=== PATIENT | male | born 1995 | race African-American/Black ===

== ENCOUNTER 2016-06-08 20:24 | Emergency (ER) | payer SELFPAY ==
[~2016-06-08] VITALS: Ht 188 cm; Wt 80.0 kg
[2016-06-08 20:26] VITALS: BP 158/106; PULSE 86; RESP 16; TEMP 98.6; O2SAT 98
[2016-06-08] MEDS ORDERED: CLIN150 PO (21:42)
[2016-06-08] MEDS ORDERED: LIDOCAINE 1%/EPINEPHrine 1:100,000 SOLN 20 ML VIAL INFIL ONE (21:45)
[2016-06-08] MEDS ORDERED: CLINDAMYCIN PHOS 600 MG/4 ML VIAL IM ONE (21:45)
[2016-06-08] MEDS ORDERED: BUPIVACAINE HCL PF 0.5% 30 ML VIAL INFIL ONE (21:45)
--- NOTE | 2016-06-08 21:47 | PD ---
HPI Chief Complaint: dental abscess Time Seen by Provider: 21:43 Travel History International Travel<30 days: No Contact w/Intl Traveler<30days: No Traveled to known affect area: No History of Present Illness HPI 21-year-old black male presents to the department with complaints of worsening dental pain and facial swelling. He states that his symptoms have been present now for the past 3 or 4 days. He was seen by his dentist today sometime around 9-10 AM. He has had 2 doses of his amoxicillin. He states that he is concerned that he feels his face is becoming more swollen and he has not responded. He states the pain is moderate to severe. No alleviating factors. He states that he feels subjectively warm. He does complain of pain to his left ear. He denies any nausea vomiting. No abdominal pain or diarrhea. No dysuria or frequency. PFSH Past Medical History Medical History: Denies Significant Hx Tetanus Vaccination: < 5 Years Past Surgical History Surgical History: No Previous Surgery Social History Alcohol Use: No Tobacco Use: No Substance Use: No Allergies-Medications (Allergen,Severity, Reaction): Coded Allergies: No Known Allergies (Unverified , 06/08/16) Reported Meds & Prescriptions Reported Meds & Active Scripts Active Cleocin (Clindamycin HCl) 150 Mg Cap 300 Mg PO Q6H Review of Systems Except as stated in HPI: all other systems reviewed are Neg Physical Exam Narrative GENERAL: Well-developed, well-nourished in no acute distress. Nontoxic appearing. HEAD: Normocephalic, atraumatic. EYES: Pupils equal round and reactive. Extraocular motions intact. No scleral icterus. No injection or drainage. ENT: TMs clear without erythema. The external auditory canals clear. Nose: clear . Posterior pharynx is pink and moist. No tonsillar edema or exudate. Uvula midline. Airway patent. Patient has a dental carry in tooth #19 with gingival erythema and edema. This appears to be a dental abscess. There is some left lower mandibular swelling. No trismus. NECK: Trachea midline.Supple, nontender, moves head freely. No central bony tenderness or spasm. CARDIOVASCULAR: Regular rate and rhythm without murmurs, gallops, or rubs. RESPIRATORY: Clear to auscultation. Breath sounds equal bilaterally. No wheezes , rales, or rhonchi. GASTROINTESTINAL: Abdomen soft, non-tender, nondistended. No hepato-splenomegaly , or palpable masses. No guarding. EXTREMITIES: No clubbing, cyanosis, or edema. No joint tenderness, effusion, or edema noted. BACK: Nontender without deformity or crepitance. No flank tenderness. Data Data Last Documented VS Vital Signs Date Time Temp Pulse Resp B/P Pulse Ox O2 Delivery O2 Flow Rate FiO2 06/08/16 20:26 98.6 86 16 158/106 98 Room Air Orders Lidocai-Epi 1%-1:100,000 Inj (Xylocaine- (06/08/16 21:45) Clindamycin Inj (Cleocin Inj) (06/08/16 21:45) Bupivacaine Pf 0.5% Inj (Marcaine Pf 0.5 (06/08/16 21:45) MDM Medical Decision Making Medical Screen Exam Complete: Yes Emergency Medical Condition: Yes Medical Record Reviewed: Yes Differential Diagnosis MDM: Moderate Differential diagnoses: Dental abscess, dental caries, osteitis, cellulitis Narrative Course This is dental abscess. A incision and drainage has been performed. Patient's given clindamycin 600 mg IM. Procedures Procedure Narrative Incision and drainage dental abscess: 1% lidocaine with epinephrine and 0.5% Marcaine was injected into the gingiva on the vehicle side of around tooth #19 and 20. A stab incision with an 11 blade scalpel was made and pus is expressed. Diagnosis Primary Impression: Dental abscess Departure Forms: Work Release Special Instructions: No work 2 days Additional Instructions: Rest. [place] gargles. [place] oil on cotton balls. Continue your medications. Add in clindamycin. follow-up with a dentist as soon as possible. And return to the ER if any problems. Med/Other Pt SpecificInfo: Prescription(s) given Scripts Clindamycin (Cleocin)150 Mg [id number] Mg PO Q6H #80 CAP Prov:Eduardo Reyna MD 06/08/16 Disposition: 01 DISCHARGE HOME Condition: Stable Holger Guzman Jun 08, 2016 21:47
== END 2016-06-08 22:36 | disposition home or self-care (01) ==
LOC: NEPB 20:24
DX: K04.7 Periapical abscess without sinus (principal); H92.02 Otalgia, left ear
CPT/HCPCS: 10060; 96372

== ENCOUNTER 2016-06-09 03:48 | Emergency (ER) | payer SELFPAY ==
[~2016-06-09] VITALS: Ht 185.4 cm; Wt 75.3 kg
[~2016-06-09 03:48] MED LIST: CLIN150 PO
[2016-06-09 03:50] VITALS: BP 153/100; PULSE 86; RESP 16; TEMP 98.6; O2SAT 97
[2016-06-09] MEDS ORDERED: BUPIVACAINE/EPINEPHRINE 0.25% PF 30 ML VIAL NERV BLOCK ONE (04:15)
[2016-06-09] MEDS ORDERED: LIDOCAINE 1%/EPINEPHrine 1:100,000 SOLN 20 ML VIAL INFIL ONE (04:15)
--- NOTE | 2016-06-09 05:15 | PD ---
HPI Chief Complaint: Oral / Dental Pain or Problem Time Seen by Provider: 05:11 Travel History International Travel<30 days: No Contact w/Intl Traveler<30days: No Traveled to known affect area: No History of Present Illness HPI 21-year-old black male returns to the ER after being evaluated and treated earlier in the evening by myself. He comes in due to pain and bleeding. He had a dental abscess which was incised and drained. He states that he has had persistent bleeding. He states that the anesthesia has worn off and he has back and pain. He denies any fever or chills. No difficulty swallowing. Pain is moderate. Bleeding is moderate. PFSH Past Medical History Diminished Hearing: No Medical other: Yes (SINUS) Past Surgical History Other Surgery: Yes (I&D OF DENTAL ABCESS) Social History Alcohol Use: No Tobacco Use: No Substance Use: No Allergies-Medications (Allergen,Severity, Reaction): Coded Allergies: No Known Allergies (Unverified , 06/09/16) Reported Meds & Prescriptions Reported Meds & Active Scripts Active Cleocin (Clindamycin HCl) 150 Mg Cap 300 Mg PO Q6H Review of Systems Except as stated in HPI: all other systems reviewed are Neg HENT: Positive: Gingival Bleeding, Dental Difficulties, Earache, No: Sore Throat, Congestion, Ear Discharge Physical Exam Narrative GENERAL: Well-developed, well-nourished in no acute distress. Nontoxic appearing. HEAD: Normocephalic, atraumatic. EYES: Pupils equal round and reactive. Extraocular motions intact. No scleral icterus. No injection or drainage. ENT: TMs clear without erythema. The external auditory canals clear. Nose: clear . Posterior pharynx is pink and moist. No tonsillar edema or exudate. Uvula midline. Airway patent. Patient has bleeding coming from the incision site from his incision and drainage. Patient still has a moderate amount of swelling to the left mandible. NECK: Trachea midline.Supple, nontender, moves head freely. No central bony tenderness or spasm. CARDIOVASCULAR: Regular rate and rhythm without murmurs, gallops, or rubs. RESPIRATORY: Clear to auscultation. Breath sounds equal bilaterally. No wheezes , rales, or rhonchi. GASTROINTESTINAL: Abdomen soft, non-tender, nondistended. No hepato-splenomegaly , or palpable masses. No guarding. EXTREMITIES: No clubbing, cyanosis, or edema. No joint tenderness, effusion, or edema noted. BACK: Nontender without deformity or crepitance. No flank tenderness. Data Data Last Documented VS Vital Signs Date Time Temp Pulse Resp B/P Pulse Ox O2 Delivery O2 Flow Rate FiO2 06/09/16 03:50 98.6 86 16 153/100 97 Room Air Orders Lidocai-Epi 1%-1:100,000 Inj (Xylocaine- (06/09/16 04:15) Bupivacaine-Epi Pf 0.25% Inj (Marcaine-E (06/09/16 04:15) MDM Medical Decision Making Medical Screen Exam Complete: Yes Emergency Medical Condition: Yes Medical Record Reviewed: Yes Differential Diagnosis MDM: Moderate Differential diagnoses: Dental abscess, dental caries, osteitis, cellulitis, postop bleeding Narrative Course Patient has postoperative bleeding after his incision and drainage. He is given additional injection of lidocaine 1% with epinephrine and 0.25% Marcaine with epinephrine. The patient has gargled with ice water and he has had resolution of his bleeding. This is postoperative bleeding, dental abscess Diagnosis Primary Impression: postoperative bleeding Additional Impression: Dental abscess Patient Instructions: General Instructions Additional Instructions: Rest. [place] gargles. [place] oil on cotton balls. Continue your medications to complete. Continue the new prescription for clindamycin. follow-up with a dentist as soon as possible. And return to the ER if any problems. Med/Other Pt SpecificInfo: No Change to Meds Disposition: 01 DISCHARGE HOME Condition: Stable Holger Guzman Jun 09, 2016 05:15
== END 2016-06-09 05:53 | disposition home or self-care (01) ==
LOC: NEPB 03:48
DX: K91.840 Postprocedural hemorrhage of a digestive system organ or structure following a digestive system procedure (principal); K04.7 Periapical abscess without sinus
CPT/HCPCS: 99282